=== PATIENT | female | born 1940 | race Caucasian/White ===

== ENCOUNTER 2019-02-08 17:07 | Inpatient (IN) | payer OTHER ==
[~2019-02-08] VITALS: Ht 167.6 cm; Wt 65.5 kg
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
[~2019-02-08 17:07] MED LIST: ACETAMINOPHEN325 M1 PO; AMBIEN 10 MG TA10 MG PO; AMITRIPTYLINE H25 M2 PO; AMITRIPTYLINE H25 M3 PO; AMOXICILLIN 50500 MG PO; AMOXICILLIN500 M1 PO; ANCEF 1GM1 GM/50 M2 IV; ASPERCREME76.5 GM; ASPIRIN EC325 M1 PO; ASPIRIN325; ATIVAN0.5 MG; ATIVAN0.5 MG PO; AZITHROMYCIN 2250 MG PO; BENADRYL ALLERG25 MG PO; BENADRYL25 MG PO; BISACODYL5 MG PO; CARAFATE 1 GM TA1 G1 PO; CARAFATE 11 GM/10 M1 PO; CEFUROXIME250 MG PO; CEFUROXIME500 MG PO; CELEXA40 MG PO; CEPHALEXIN 500500 M3 PO; CHOLESTYRAM; CLONAZEPAM 1 MG1 M1 PO; COLACE100 MG PO; COUMADIN 2 MG TA2 M1 PO; COUMADIN 4 MG TA4 M1 PO; COUMADIN PO; CYCLOBENZAPRINE5 MG PO; CYMBALTA30 MG PO; DARVOCET-N 1001 EAC1 PO; DIABETA 5MG TABL5 MG PO; DICLOFENAC SODI75 M2 PO; DICLOFENAC SODI75 MG PO; DOXYCYCLINE 10100 MG PO; DUONEB 2.5-0.5 M3 ML INH; ENOXAPARIN30 MG/0.3 SQ; FLEXERIL PO; FUROSEMIDE 20 M20 M1 PO; GLUCOPHAGE1000 MG PO; GLYBURIDE 2.52.5 MG PO; GLYBURIDE 5 MG T5 MG PO; HYDROCODON-ACE1 EAC5 PO; HYDROCODON-ACE1 EAC7 PO; HYDROCODONE-AP1 EAC6 PO; IMODIUM A-D2 MG PO; IRON325 PO; KEFLEX500 MG PO; KLOR-CON 1010 MEQ PO; LANTUSSOLASTAR INJECTION; LASIX 40 MG TAB40 M1 PO; LEVOTHYROXIN0.112 M1 PO; LEVOTHYROXINE0.2 M1 PO; LISINOPRIL-HCT1 EAC2 PO; LISINOPRIL-HCT1 EACH PO; LOPERAMIDE 2 MG2 M1 PO; LOPRESSOR 50 MG50 M1 PO; LOPRESSOR25 PO; LORAZEPAM I2 MG/1 ML PO; LOTRIMIN AF150 GM TP; LOVENOX40 MG/0.4 SQ; LYRICA 50 MG50 MG PO; MACROBID 100 M100 M1 PO; METAMUCIL PAC1 UDPK1 GT; METHADONE HCL 110 M1 PO; MINOCYCLINE HC100 M2 PO; MIRALAX17 GM PO; MISC; MOM PO; MYCELEX TROCHE PO; MYLANTA PO; NAMENDA 5 MG TAB5 M1 PO; NORCO 10-325 T1 EACH PO; NORCO 5-325 TA1 EACH; NORCO 5-325 TA1 EACH PO; NOVOLIN R100 UNIT/1; NOVOLOG100 UNIT/1 SUBQ; NYSTATIN1 EAC9; OMEPRAZOLE 20 M20 MG PO; OPANA ER10 MG PO; OPANA10 MG PO; OSELB75 PO; OXYBUTYNIN 5 MG5 M1 PO; OXYBUTYNIN 5 MG5 M2 PO; OXYCODONE HCL 55 MG PO; OXYCONTIN10 M1 PO; PANTOPRAZOLE SO40 M1 PO; PAXIL10 MG PO; PERCOCET 5-3251 EACH PO; PRILOSEC 20 MG20 MG PO; PROTONIX40 M1 PO; REQUIP 1 MG TABL1 M1 PO; REQUIP PO; REQUIP XL2 MG PO; REQUIP4 MG PO; SEE COMMENTS; SENNA-S TABLET1 EACH PO; TRAMADOL 50 MG50 MG PO; TRANSDERM-SCO1 PATC1 TRANSDERM; TRAZODONE 150150 M1 PO; TRAZODONE HCL50 MG PO; TRIAMTERENE-HC1 EAC1 PO; UNASYN 3 GM VIAL3 G1 IVPB; UNICOMPLEX M TA1 TA1 PO; VANCOMYCIN1 GM/2502 IVPB; VANCOMYCIN1.25 GM/21 IV; VANCOMYCIN1.5 GM/252 IV; VICODIN 5-5001 EACH PO; VITAMIN D250000 UNIT PO; VITAMIN E200 UNI3 PO; VITAMIN E200 UNI4 PO; VITAMINC500 PO; VOLTAREN75 MG PO; XANAX 0.25 MG0.25 MG PO; XARELTO10 M1; XARELTO10 M1 PO; XARELTO15 MG PO; ZOFRAN ODT4 MG PO; ZOFRAN4 MG PO; [UNRECOGNIZED DRUG - OTHER] TOP; levothroxine PO
--- NOTE | 2019-02-08 20:33 | NUR ---
PATIENT ARRIVED ON UNIT AT 1700 VIA EMT. SEDATED AND SLEEPING PLACED IN ROOM. UNABLE TO ASSESS VERBALLY. DPOA -
[2019-02-08 21:06] VITALS: BP 130/49
[2019-02-08 21:36] VITALS: BP 111/52
--- NOTE | 2019-02-09 03:31 | NUR ---
RECEIVED REPORT FROM OFFGOING DAY NURSE. ASSUMED CARE @ 19:15. IN BED EYES CLOSED. OXYGEN SATURATION HIGH 70S. OXYGEN APPLIED VIA N/C @ 2.5 L. PT SATS RAISED TO HIGH 80. OXYGEN RAISED TO 3.0L AND OXYGEN SATS RAISED TO 93%. INCONTINENT CARE GIVEN. HS MEDICATIONS HELD D/T SEDATION. REPOSITIONED Q2 AND INCONTINENT CARE GIVEN NEEDED. PT REPOSITIONS SELF. BED IN LOW POSITION, 3 SIDERAILS UP, ALARM SET. WILL CONTINUE TO MONITOR Q 12 MINUTES FOR PATIENT SAFETY.
[2019-02-09 09:44] VITALS: BP 138/64
[2019-02-09 13:27] VITALS: BP 138/64
--- NOTE | 2019-02-09 16:40 | NUR ---
AAOX4. FORGETFUL AND CONFUSED AT TIMES. DID CALL SPOUSE AND SEEMED TO HAVE A NORMAL CONVERSATION. GOOD APPETITE, REQUESTED GROUND MEAT FOR MEALS. ABLE TO STAND FOR WEIGHT. PROPELS SELF IN WHEELCHAIR. VISITS WITH OTHER PATIENTS IN DINNNG ROOM AND PLAYS SOLITAIR.
[2019-02-09 21:19] VITALS: BP 110/66
--- NOTE | 2019-02-10 03:13 | NUR ---
PATIENT ALERT AND ORIENTED TO SELF, COOPERATIVE WITH CARE. IN THE BED AT CHANGE OF SHIFT CURLED UP WITH HER BABY DOLL. SLEEPING AT TIME OF NOTE. WILL MONITOR. DENIES PAIN.
[2019-02-10 09:18] VITALS: BP 153/100
--- NOTE | 2019-02-10 11:07 | NUR ---
KATHY observe the pt in rec. group. pt was involved in group. Pt was trying her best to participate in group. SW asked the pt if she would like assistance. Pt mention that she would like to use her independence as much as possible. KATHY validated pt wishes. KATHY will follow-up with pt.
--- NOTE | 2019-02-10 11:11 | NUR ---
SW attempted to reach pt . SW was not successful due to line been busy.
--- NOTE | 2019-02-10 15:28 | NUR ---
PROPELS SELF IN WHEELCHAIR. AAOX4 PLEASANT AND COOPERAITVE. TAKES MEDICATIONS WHOLE. GOOD APPETITE FOR MEALS. ATTENDED GROUP THERAPY.
[2019-02-10 21:18] VITALS: BP 148/79
--- NOTE | 2019-02-10 23:14 | NUR ---
PT SELF PROPELING IN W/C, SMILING, TALKING WITH STAFF AND PEERS, GOOD EYE CONTACT. PT COMPLIANT WITH HS MEDS AND SNACK. PT REQUESTED ACTIVITY SINCE SHE COULD NOT SLEEP AND WORD SEARCH PROVIDED. PRN FOR CHRONIC BACK AND L KNEE PAIN. PT HAS KYPHOSIS. PT STATED SHE MAY BE DISCHARGED TOMORROW. PT HAS BABY DOLL IN HER BED.
[2019-02-11 08:00] VITALS: BP 140/96
--- NOTE | 2019-02-11 08:30 | NUR ---
PT ALERT THIS AM. PT IN W/C AND NEEDS ASSISTANCE WITH TRANSFERS. SOMETIMES PT STANDS AT TABLE WITH W/C BEHIND HER. PT STATED SHE HAS SOME PAIN TO HANDS. PT HANDS APPEAR TO BE ARTHRITIC. PT WANTING TO SEE PRIMARY TODAY.
[2019-02-11 08:41] VITALS: BP 140/96
--- NOTE | 2019-02-11 11:47 | NUR ---
ADM PERCOCET 5MG/324MG ONE TAB PO FOR PAIN TO HANDS OF 7 ON 1-10 SCALE.
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
--- NOTE | 2019-02-11 20:06 | NUR ---
ASSUMED CARE OF THE PT AT 1914 PM. ALERT ET ORIENTED X 2. MAKES NEEDS KNOWN. THE PT WAS IN THE DAYROOM WHEN THIS EDUCATION INSTRUCTOR FIRST CAME ON DUTY. HEART RATE REGULAR. LUNGS CLEAR BILATERALLY, RESP., EVEN, AND UNLABORED. DENIES PAIN AT THIS TIME.
[2019-02-12 00:14] VITALS: BP 130/46
--- NOTE | 2019-02-12 06:48 | NUR ---
the pt slept 7.4 hours last night.
[2019-02-12 07:40] VITALS: BP 148/92
--- NOTE | 2019-02-12 18:33 | NUR ---
PATIENT ALERT AND ORIENTED AND PARTICIPATES IN GROUPS AND PLAN OF CARE. PATIENT COMPLAINS OF MUSCLE SPASMS AND RECIEVED CYCLOBENZAPRINE AND PAIN MEDICATIONS. PATIENT SLEPT FOR ABOUT 1+ HOURS THIS AFTERNOON. PATIENT DOES NOT LIKE FOOD ARE HER TRAY BUT WILL DRINK ENSURE SUPPLEMENT.
[2019-02-12 19:49] VITALS: BP 110/60
[2019-02-13 00:47] VITALS: BP 110/60
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
[2019-02-13 09:15] VITALS: BP 144/71
[2019-02-13 13:02] VITALS: BP 144/71
--- NOTE | 2019-02-13 14:00 | NUR ---
ASSUMED CARE AT 0700 THIS MORNING. PT. ON THE UNIT SITTING AT A TABLE READY FOR BREAKFAST. SHE IS PLEASANT AND COOPERATIVE WITH STAFF. SHE IS COMPLIANT WITH MEDICATIONS. SHE IS EATING FAIR. SHE WENT TO AM GROUP. SHE DENIES SI/HI. SHE TOLD THIS RN, "I DON'T BELONG HERE AND I NEED TO KNOW HOW DO I GET OUT OF HERE?" SHE STATED THIS A FEW TIMES THROUGHOUT THE DAY. SHE HAS NOT C/O BACK PAIN TODAY AND UP TO THIS TIME, NO PRN'S HAVE BEEN REQUESTED OR NEEDED.
--- NOTE | 2019-02-13 16:07 | NUR ---
KATHY sent d/c documents to [facility]. SW called in spoke with the NF concerning d/c on 02/14/19. The DON mention that she will return the call concerning d/c time. KATHY will follow-up with NF.
[2019-02-13 20:51] VITALS: BP 127/54
--- NOTE | 2019-02-14 04:44 | NUR ---
PATIENT COOPERATIVE AND CALM THIS EVENING. HER GLUCOSE WAS 224 AT HS AND HUMALOG 4 UNITS GIVEN. PATIENT WAS WANTING MALE NURSE TO PICK HER UP AND SIT HER IN HER WC TO GO TO THE BATHROOM TONIGHT. SHE SAID HE DOES THIS EVERYNIGHT WHICH IS NOT TRUE. I HAD WORKED WITH HER LAST COUPLE OF NIGHTS AND SHE WAS USING WC OR WALKER WITH ASSIST TO BATHROOM. PATIENT DID USE WALKER TO RESTROOM. PATIENT IS SLEEPING WITH HER BABY DOLL, CLARA.
[2019-02-14 07:38] VITALS: BP 161/99
--- NOTE | 2019-02-14 08:00 | NUR ---
PT STATED SHE HAS PAIN TO LOWER BACK AND RT ARM. PT STATED SHE DIDN'T SLEEP VERY WELL LAST NIGHT DUE TO THE PAIN. PT LUNGS CLEAR AND ON ROOM AIR. PT NEEDS ASSISTANCE X1 PERSON TO STAND-BY WITH TRANSFERS.
--- NOTE | 2019-02-14 08:56 | NUR ---
ADM PERCOCET 5MG PO FOR PAIN TO BACK AND ARM OF 8 ON 1-10 SCALE.
--- NOTE | 2019-02-14 09:00 | NUR ---
PT REFUSED LASIX THIS AM STATING THAT SHE WAS UP VOIDING ALL NIGHT AND SHE GOT IT ALL NIGHT.
--- NOTE | 2019-02-14 12:00 | NUR ---
PT DIDN'T WANT TO HAVE INSULIN, PT STATED SHE IS TIRED OF GETTING SHOTS. PT DIDN'T WANT THE CHICKEN. ORDERING ANOTHER ITEM FOR PT TO EAT.
--- NOTE | 2019-02-14 12:22 | NUR ---
Date of Admission: 02/08/19 Date of Activity Therapy Assessment: 02/11/19 Activity Goal: Increase reality orientation Initial Goal: 1 Group activity/day Weekly progress towards goal: On track Group participation level: Moderate Behaviors observed: Patients participation varies as she frequently naps throughout the day. When present in group, pt is soft spoken and cordial. She exhibits lack of orientation, but is able to maintain focus to topic at hand. Plan: No change towards goal
--- NOTE | 2019-02-14 13:07 | NUR ---
ADM PERCOCET 5MG PO FOR PAIN TO RT ARM. PT STANDING UP AT TABLE.
[2019-02-14 21:34] VITALS: BP 102/53
--- NOTE | 2019-02-14 21:49 | NUR ---
PT CHEERFUL GOOD EYE CONTACT, PT LAYING ON COUCH IN DAY ROOM, C/O L HIP PAIN AND PRN MEDICATIONS PROVIDED. PT WANTS DR TO ORDER HEATING PAD AND WILL PASS ON TO DAY SHIFT. PT COMPLIANT WITH MEDICATIONS AND HS SNACK. PT NOT INTERACTING WITH PEERS THIS PRABHA. PT USES W/C TO SELF PROPEL, SLOUCHED POSITION REMAINS R/T KYPHOSIS. L LEG DOES NOT BEND R/T KNEE SURGERY.
[2019-02-15 07:20] VITALS: BP 157/68
--- NOTE | 2019-02-15 07:30 | NUR ---
ASSISTED PT GETTING READY FOR BREAKFAST. PT BRIEF WET AND JUST WANTED NEW ONE. PT STATED SHE HAS SOME PAIN TO ARMS AND BACK. PT TRANSFERED FROM BED TO W/C.
--- NOTE | 2019-02-15 09:00 | NUR ---
PT REFUSED LASIX TODAY, PT REFUSED YESTERDAY ALSO. PT STATED THAT IT MAKES HER URINATE ALL NIGHT. PT STATED HER LEGS ARE NOT SWELLING. PT STATED HER BACK PAIN IS 7 ON 1-10 SCALE. PT ALSO STATED SHE DIDN'T LIKE GETTING INSULIN SHOTS.
[2019-02-15 09:05] VITALS: BP 157/68
--- NOTE | 2019-02-15 12:13 | NUR ---
ADM PERCOCET 5MG PO FOR PAIN TO BACK. PT REFUSING METFORMIN STATING IT MAKES HER HALLUCINATE.
--- NOTE | 2019-02-15 12:30 | NUR ---
LEFT MESSAGE FOR ELECTRIC TRACK SWITCH MAINTAINER ABOUT NOT TAKING METFORMIN. DR. GONZALEZ AWARE OF PT REFUSING LASIX X2 DAYS.
--- NOTE | 2019-02-15 16:17 | NUR ---
KATHY sent updates to Carlos pena (f) [phone]
[2019-02-15 19:30] VITALS: BP 137/98
--- NOTE | 2019-02-15 21:31 | NUR ---
PT IN ROOM UPON ARRIVAL TO SHIFT. PT HAD INCONTINENCE EPISODE X 1, SHE DID NOT HAVE BREIF ON AND WHEN SHE WAS TRANSFERING TO W/C SHE HAD INCONTINENCE EPISODE. PT COMPLIANT WIHT MEDICATIONS AND HS SNACK. PT STATED SHE IS TIRED OF HAVING FSBS AND INSULIN GIVEN BUT SHE COMPLIED. PT TALKED WITH HER ON THE PHONE AND STATED SHE WAS UPSET BECAUSE HE TOLD HER SHE WOULD NOT BE RETURNING HOME. PT STATED SHE HAD QUESTION RE MEDICARE AND MEDICADE, SW WILL BE NOTIFIED TO F/U WITH PT AND PT VERBALIZED UNDERSTANDING. PT ALSO TALKED WIHT HER SON ON THE PHONE AND SHE STATED THAT CONVERSATION WAS POSITIVE. PT HAD PRN FOR PAIN L HIP.
[2019-02-16 08:32] VITALS: BP 119/57
[2019-02-16 10:29] LABS: ABSOLUTE NEUTROPHILS 4.3 thou/uL (1.4-8.2); BASOPHILS 1.1 % (0.0-2.0); EOSINOPHILS 5.8 % (0.0-3.0); HEMATOCRIT 33.4 % (37.0-47.0); HEMOGLOBIN 10.5 gm/dL (12.0-15.0); LYMPHOCYTES 16.6 % (24.0-44.0); MCH 23.9 pg (26.0-34.0); MCHC 31.4 g/dL (28.0-37.0); MCV 76.1 fL (80.0-100.0); MONOCYTES 7.2 % (1.0-8.0); PLATELET COUNT 443 thou/uL (150-400); POLYS 69.3 % (36.0-66.0); RBC 4.38 mil/uL (4.20-5.00); RDW 18.9 % (10.5-14.5); WBC 6.2 thou/uL (4.0-11.0)
[2019-02-16 10:38] LABS: CALCIUM 9.1 mg/dL (8.5-10.1); MAGNESIUM 1.2 mg/dL (1.8-2.4); POTASSIUM 3.9 mmol/L (3.5-5.1)
[2019-02-16 10:57] LABS: ANISOCYTOSIS 1+; HYPOCHROMASIA 1+
[2019-02-16 19:35] VITALS: BP 119/82
[2019-02-16 23:07] LABS: GLYCOHEMOGLOBIN (HGB A1C) 10.9 % (4.8-5.6)
--- NOTE | 2019-02-17 02:24 | NUR ---
NURSES NOTE - ASSUMED CARE OF PATIENT AT APPROXIMATELY 1915, SHE IS ALERT AND ORIENTED X2-3 UPON ARRIVAL ON SHIFT AND ASSESSMENT. SHE APPEARS WITH A EUTHYMIC AFFECT, IS ABLE TO INDEPENDENTLY COMPLETE ADLS, SHE AMBULATES WITH A WALKER, BUT PERFORMS 'EXERCISES' WHILE STANDING ON THE WHEELCHAIR. AT APPROXIMATELY 2100 SHE APPEARED TO BE INCREASINGLY MORE CONFUSED ALERT AND ORIENTED X1-2. PT HAD EPISODE OF INCONTINENCE IN THE EVENING, BUT PATIENT WAS AWARE OF SITUATION AND WAS ABLE TO PARTIALLY ASSIST IN CHANGING BED, CLOTHING, ETC. NURSING WILL MAINTAIN ALL PRECAUTIONS TO ENSURE SAFETY AT ALL TIMES.
--- NOTE | 2019-02-17 03:00 | NUR ---
TSH results received = 11.436. notified. Order obtained to d/c Levothyroxine 112mcg po daily, start Levothyroxine 125mcg po daily. Order also obtained to re-check TSH level in one month.
[2019-02-17 09:11] VITALS: BP 158/65
--- NOTE | 2019-02-17 18:37 | NUR ---
PT ALERT AND ORIENTED TIMES FOUR, WITH SOMEWHAT BLUNTED AFFECT. VSS. PT DENEIS SI/HI/AV/HV. PT TOLERATES MEDS AND MEALS. UP FOR MOST OF THE SHIFT IN WC. PT REFUSED TO HAVE BLOOD DRAWN THIS EVENING. DR NITA ROLLE GIVEN. WILL CONTINUE TO MONITOR.
[2019-02-18 00:39] VITALS: BP 158/65
--- NOTE | 2019-02-18 03:58 | NUR ---
PT OUT WITH PEERS, BUT MINIMAL INTERACTION. WATCHED TV, BUT REFUSED SNACK. RETURNED TO ROOM, BUT CAME OUT AT MED TIME AND TOOK MEDS W/O PROBLEM, AND WAS THEN PROVIDED WITH SNACK. REMAINED UP UNTIL 0, AND RETURNED TO ROOM AND BED. UP X2 TO BS COMMODE WITH ASSIST. AFFECT GENERALLY FLAT AND DEPRESSED.
[2019-02-18 09:38] VITALS: BP 158/90
--- NOTE | 2019-02-18 13:16 | NUR ---
PATIENT REFUSING LASIX THIS SHIFT. EDUCATION PROVIDED ON DISEASE PROCESS AND NEED FOR PRESCRIBED MEDICATION. PATIENT REPORTS UNDERSTANDING BUT CONTINUES TO REFUSE. PATIENT ACCEPTING ALL OTHER MEDICATIONS. DENIES ANY THOUGHTS OF HARMING HERSELF. DOES STATE THAT SHE DOES NOT UNDERSTAND WHY SHE IS HERE AT THIS FACILITY.
--- NOTE | 2019-02-18 22:52 | NUR ---
CAME ON SHIFT TONIGHT AND PATIENT APPEARED UPSET. I STOPPED TO ASK HOW SHE WAS DOING AND SHE STATES SHE WAS FRUSTRATED BECAUSE HER KIDS HAD NOT COME TO SEE HER TODAY. SHE STATES HER STOMACH WAS UPSET TOO. SHE WAS JUST FUSSY AND NOTHING SEEMED TO MAKE HER HAPPY. CALLED HER /TIER[facility]ODS AND PATIENT SPOKE WITH HER AND THIS NURSE. PATIENT HAD REFUSED HER LABS TODAY AND WAS REFUSING US CHECKING HER GLUCOSE. AFTER THE CALL, SHE ALLOWED BLOOD SUGAR TO BE CHECKED. ODANSTERON WAS GIVEN FOR STOMACH UPSET AND TRAMADOL FOR PAIN. PATIENT'S GLUCOSE WAS 127. SHE DID HAVE A HS SNACK OF SF COOKIES AND MILK ONCE HER STOMACH AND BACK PAIN WAS UNDER CONTROL. SHE WHEELED AROUND IN HER WC FOR A BIT AND I ASSISTED HER TO BED AROUND 2245. SHE STATES HER BACK PAIN WAS MUCH BETTER AND HER STOMACH DID NOT HURT. SHE WAS CALM AND NOT AGITATED AND FUSSY SHE HAD BEEN. BED ALARM ON. PATIENT SLEEPING.
[2019-02-18 23:30] VITALS: BP 158/90
--- NOTE | 2019-02-19 04:11 | NUR ---
PATIENT HAS BEEN SLEEPING SOUNDLY TONIGHT. DOES SEEM TO BE COMFORTABLE. SHE CONTINUES TO SLEEP WITH HER BABY DOLL, "CLARA". PATIENT SLEEPING WITH BRIEF ON AND BSC NEXT TO BED. BED ALARM ON AND BED IN LOW POSITION. DOCTOR NOTE STATES THAT PATIENT WILL BE D/C'D BACK TO [facility] IN [place], [place] SOMETIME TODAY.
--- NOTE | 2019-02-19 09:23 | NUR ---
0710: Report rec from [facility] shift, care assumed. [id number]: Assisted with brief change, amira-care and transfer to w/c, staff x1 for stand by assist. To Dr via w/c, alert, oriented to name and place, feeds self with PRN assist, takes meds whole in pudding due to pt stating that its hard to swallow pills due to bad taste. Appetite good, accu-check 145, 3units of Lispro given, no SS insulin needed. Oxycodone 1 tab given for rt hip pain, rated "7-8" on 0-10 pain scale. Remained in common area for 0900 therapy group, but did participate. Cooperative and pleasant mood, denies SI, hallucinations or delusions at this time. VS=98.3-75-15, SATo2 on RA=97%, 143/87.
[2019-02-19 11:04] VITALS: BP 143/87
--- NOTE | 2019-02-19 11:45 | NUR ---
Patient Name: UJ MEDELLIN Admission Date: 02/08/19 DISCHARGE PLAN: Pt will be d/c to [facility]. Care Assessment: Pt was assessed by Dr. Laura and diagnosed with Major Neurocognitve Disorder. Level II Assessment: None Transportation: Pt will be transported by [facility] nursing staff. Special Instructions/Notes: Pt will need a memory care placement. DISCHARGE TO FACILITY: [facility] F[facility]: Address: [facility] [place] [address] Contact Name: Farzana PCP: BRUNA Psychiatrist: LIDYA Psychiatrist
[2019-02-19] MEDS ORDERED: PERCOCET PO (12:45)
[2019-02-19] MEDS ORDERED: DEPAKOTE ER250 MG PO (12:46)
[2019-02-19] MEDS ORDERED: SERTRALINE HCL50 MG PO (12:46)
[2019-02-19] MEDS ORDERED: REQUIP 1 MG TABL1 M1 PO ×2 (12:47)
[2019-02-19] MEDS ORDERED: BUSPIRONE HCL5 MG PO (12:47)
[2019-02-19] MEDS ORDERED: SYNTHROID125 MC1 PO (12:49)
[2019-02-19] MEDS ORDERED: NOVOLOG100 UNIT/1 SUBQ (12:49)
[2019-02-19] MEDS ORDERED: MELATONIN5 M1 PO (12:50)
[2019-02-19] MEDS ORDERED: NYAMYC15 GM TOP (12:51)
== END 2019-02-19 13:00 | DRG 884 ==
LOC: SBH 17:07
PROVIDERS: Nurse Practitioner; ADMIT Psychiatry & Neurology Psychiatry
DX: F01.51 Vascular dementia, unspecified severity, with behavioral disturbance (principal); F32.9 Major depressive disorder, single episode, unspecified; F41.9 Anxiety disorder, unspecified; E11.9 Type 2 diabetes mellitus without complications; I10 Essential (primary) hypertension; E03.9 Hypothyroidism, unspecified; R32 Unspecified urinary incontinence; Z66 Do not resuscitate; G25.81 Restless legs syndrome; Z90.49 Acquired absence of other specified parts of digestive tract; Z79.4 Long term (current) use of insulin; Z79.899 Other long term (current) drug therapy; Z88.8 Allergy status to other drugs, medicaments and biological substances; Z88.1 Allergy status to other antibiotic agents; Z91.040 Latex allergy status; Z88.5 Allergy status to narcotic agent; Z91.013 Allergy to seafood
CPT/HCPCS: 10880